=== PATIENT | male | born 1965 | race Caucasian/White ===

== ENCOUNTER 2024-10-26 15:25 | Outpatient (AMB) | payer OTHER, SELFPAY ==
--- NOTE | 2024-10-26 15:30 | MHC.OFFWIV ---
Intake Vital Signs 10/26/24 15:53 Height 5 ft 8 in Weight 262 lb BMI 39.8 BP 124/82 Blood Pressure Location Rt brachial Position Sitting Pulse 98 Pulse Source Pulse Oximeter Temp 97.8 F Temp Source Oral Pulse Oximetry (%) 97 Oxygen Delivery Method Room Air Intake Visit Reasons: [employer]-b/l arm hand & chest rash Intake Note: Pt presents to the office today for c/o bilateral arm,hand, and chest rash x1 week. Pt states he did get a shingles vaccine 3 days ago. Patient Tobacco Use Status: Never used Tobacco Allergies No Known Allergies Allergy (Verified 10/26/24 15:58) HPI HPI Comments History of Present Illness Details This is a 59-year-old male with past medical history of hyperlipidemia and hypertension presenting for evaluation of a rash that he has had on his arms and chest wall for the past 1 week. Patient states that he 1st noticed red bumps on his right forearm approximately 1 week ago that were very itchy and then the rash has spread thereafter to his chest and left arm. Patient states that he did have his vaccination for herpes zoster approximately 3 days ago. Patient has been using antibiotic ointment topically without relief of his symptoms. Patient denies having any fevers, chills, cough, shortness for breath, difficulty swallowing or swelling of his tongue. Patient states that he believes his may be related to a new laundry detergent. He denies using any new soaps, eating new foods, taking new medications, new pets or other exposures. PFSH Social History Patient Tobacco Use Status: Never used Tobacco Review of Systems Const All systems reviewed & are unremarkable except as noted in HPI and below Reports no additional complaints Eyes Reports no additional complaints ENT Reports no additional complaints Card Reports no additional complaints Resp Reports no additional complaints GI Reports no additional complaints Reports no additional complaints Musc Reports no additional complaints Skin/Breast Reports change in pigmentation, Reports changing lesions, Reports pruritus, Reports lesions, Reports new lesions, Reports erythema and Denies skin swelling Neuro Reports no additional complaints Psych Reports no additional complaints Endo Reports no additional complaints Kuldip/Lymph Reports no additional complaints Physical Exam Vital Signs: Last Vital Signs Temp 97.8 F 10/26/24 15:53 Pulse 98 10/26/24 15:53 BP 124/82 10/26/24 15:53 Pulse Ox 97 10/26/24 15:53 Oxygen Delivery Method Room Air 10/26/24 15:53 BMI result Body Mass Index 39.8 Const General: cooperative, healthy appearing, comfortable and no acute distress; No ill appearing or lethargic Nutritional Appearance: average body habitus Orientation/consciousness: patient oriented x3 and No lethargic Limitations: no limitations Resp Effort & Inspection: normal respiratory effort, able to speak in complete sentences, no audible wheezes, no cough and no respiratory distress Auscultation: clear to auscultation bilaterally Cardio Rate: regular rate Rhythm: regular rhythm Skin Other: There is a maculopapular eruption noted on the volar surfaces of the forearms bilaterally in the dorsal surface of the arms bilaterally as well as the anterior chest wall. There are minimal erythematous papules on the posterior trunk. There are erythematous plaques on the dorsal surfaces of the hands bilaterally, left more extensive than left with manual excoriations. At this time there is no evidence of a secondary cellulitis, tenderness or warmth to touch. Neuro General: patient oriented x3 Psych Appearance: grossly normal Mental Status: mental status grossly normal Insight: Good insight present (Psych) Judgement: Good judgement present (Psych) Assessment & Plan Assessment & Plan (1) Contact dermatitis: Comment: Patient's history and examination are consistent with a contact dermatitis and will be treated with a prednisone taper over 9 days. Code(s): L25.9 - Unspecified contact dermatitis, unspecified cause Qualifiers: Contact dermatitis type: unspecified Contact dermatitis trigger: unspecified trigger Qualified Code(s): L25.9 - Unspecified contact dermatitis, unspecified cause Plan: Prednisone 60 mg x 3 days, 40 mg x 3 days, 20 mg x 3 days. Medications: New prednisone 20 mg orally 60mg x 3 days, 40mg x 3 days, 20mg x 3 days; 18 tabs 0RF Coding Level of Care Code Est Pt Level 3 (43127) Diagnoses Contact dermatitis, unspecified contact dermatitis type, unspecified trigger L25.9 Contact dermatitis type: unspecified Contact dermatitis trigger: unspecified trigger Time Spent (min) 20
[2024-10-26 15:53] VITALS: BP 124/82; PULSE 98; TEMP 36.6; O2SAT 97; BMI 39.8
--- OUTSIDE RECORDS SUMMARY | 2024-10-26 17:22 | XMS_ITS | Data Portability ---
Author Organization [facility], Main Office Address [address] [facility] [address] [place] [address] Care Team Providers Care Metal Pickling Equipment Operator Name Role Phone JUSTIN AMNA Vascular Surgeon JUANJOSE INGRAM Primary Care Provider [phone] GERARD MALDONADO Rail Manager [phone] Assessment Encounter Date Assessment Date Assessment LastModified by Organization Details LastModified Time 08/05/2023 08/05/2023 This service was provided using telemedicine. Patient consented to telephone visit Patient was located in the [facility]. Provider was located in the office. No other persons participated in the telemedicine visit except for the patient unless otherwise indicated here. {{}} Total time of visit was 15 minutes. [email or web address] Not available 08/05/2023 16:16:35 Plan of Treatment Reminders Order Date Submit Date Provider Last Modified By Organization Details Last Modified Time Details Appointments PE EST 2024 04:00P M Juanjose Ingram PA-Angy Not available Not available Not available Lab lipid panel, serum 2020 021 [email or web address] [facility], [address] [facility] [place], [address], 08/02/2021 12:50:38 CBC w/ auto diff 2021 022 [email or web address] [facility], [address], [place], [address], 10/02/2022 10:48:17 BMP, serum or plasma 2021 022 [email or web address] [facility], [address], [facility] [place], [address], 10/02/2022 10:48:17 hepatitis C virus Ab, serum 2021 022 SALINAS [facility], [address], [address], [place], [address], 10/31/2021 16:49:04 HbA1c (hemoglob in A1c), blood 2022 023 SALINAS [facility], [address], [address], [place], [address], 09/08/2023 21:48:45 CBC w/ auto diff 2022 023 SALINAS [facility], [address], [address], [place], [place], [address], 09/08/2023 21:30:12 PSA, serum or plasma - Screening 2022 023 SALINAS [facility], [address], [address], [place], [address], 09/08/2023 21:36:48 hepatitis C virus Ab, serum 2022 023 SALINAS [facility], [address], [address], [place], [address], 09/10/2023 07:07:45 lipid panel, serum 2022 023 SALINAS [facility], [address], [address], [place], [address], 09/08/2023 21:26:20 CMP, serum or plasma 2022 023 SALINAS [facility], [address], [address], [place], [address], 09/08/2023 21:26:18 BMP, serum or plasma 2023 024 SALINAS [facility], [address], [address], [place], [address], 01/05/2024 03:13:35 HbA1c (hemoglob in A1c), blood 2023 024 SALINAS [facility], [address], [address], [place], [address], 01/05/2024 03:13:35 noninvasi ve colorecta l cancer DNA + occult blood screening , QL, stool 2023 024 [facility] (Cologuard Orders Only), [address], [address], [place], [address], 12/10/2023 13:25:51 lipid panel, serum 2023 SALINAS [facility], [address], [address], [place], [address], 01/05/2024 03:13:35 CK (creatine kinase), total, serum 2023 024 SALINAS [facility], [address], [address], [place], [address], 01/05/2024 03:13:36 Referral orthopedi c referral 2018 019 [email or web address] Not available 06/18/2019 09:21:00 nutrition ist/dieti autumn referral 2020 021 abigby Not available 01/01/2021 13:25:38 nutrition ist/dieti autumn referral 2021 022 [email or web address] Not available 10/31/2021 17:33:23 nutrition ist/dieti autumn referral 2023 024 [email or web address] Not available 11/14/2023 11:52:01 Procedures None recorded. Surgeries None recorded. Imaging None recorded. Medication Orders sildenafi l 50 mg tablet 2020 021 [facility]/Pharmacy #[id number], [address] [place], [address], 01/01/2021 13:08:42 lisinopri l 10 mg tablet 2022 023 [id number], [address] [place], [address], 08/05/2023 16:21:31 atorvasta tin 10 mg tablet [id number] [address] [place], [address], 11/13/2023 17:20:22 atorvasta tin 20 mg tablet 2023 024 [facility]/Pharmacy #[id number], [address] [place], [address], 11/13/2023 16:58:34 Patient Targets Encounter Date Encounter Id Patient Goals Patient Target Last Modified By Organization Details Last Modified Time 01/01/2021 [id number] intermediate goal of Blood Pressure 140 / 90 Not available Not available Not available exterminator termite goal of Exercise level Not available Not available Not available exterminator termite goal of Tobacco Smoking Status Not available Not available Not available exterminator termite goal of Excess Body Weight Loss % 5 Not available Not available Not available Pt advised and agrees to eat a low salt low fat diet; to do moderate exercise (such as walking) 150 minutes per week; to limit alcohol intake (goal of 2 drinks per day or less for men or 1 for woman). and to monitor dietary sodium. Will monitor home blood pressures and bring readings to appointments. Patient preferences and goals incorporated in plan and updated/modified as needed to reflect progress toward goal.Pt advised and agrees to work on self-monitoring behaviors; begin an appropriate diet for weight loss (such as a low carbohydrate diet), to do moderate exercise (such as walking) for approximately 150 minutes per week; and to identify desirable and timely rewards that will reinforce achievement of specific weight loss goals. pmadden Not available 01/01/2021 13:10:48 10/31/2021 [id number] intermediate goal of Blood Pressure 140 / 90 Not available Not available Not available intermediate goal of Exercise level Not available Not available Not available intermediate goal of Tobacco Smoking Status Not available Not available Not available exterminator termite goal of Excess Body Weight Loss % 5 Not available Not available Not available Pt advised and agrees to work on self-monitoring behaviors; begin an appropriate diet for weight loss (such as a low carbohydrate diet), to do moderate exercise (such as walking) for approximately 150 minutes per week; and to identify desirable and timely rewards that will reinforce achievement of specific weight loss goals.Pt advised and agrees to eat a low salt low fat diet; to do moderate exercise (such as walking) 150 minutes per week; to limit alcohol intake (goal of 2 drinks per day or less for men or 1 for woman). and to monitor dietary sodium. Will monitor home blood pressures and bring readings to appointments. Patient preferences and goals incorporated in plan and updated/modified as needed to reflect progress toward goal. pmadden Not available 10/31/2021 16:48:37 08/05/2023 [id number] exterminator termite goal of Blood Pressure 140 / 90 Not available Not available Not available intermediate goal of Exercise level Not available Not available Not available intermediate goal of Tobacco Smoking Status Not available Not available Not available Ongoing of LDL Direct <100 Not available Not available Not available Ongoing of LDL Direct yearly Not available Not available Not available Pt advised and agrees to eat a low salt low fat diet; to do moderate exercise (such as walking) 150 minutes per week; to limit alcohol intake (goal of 2 drinks per day or less for men or 1 for woman). and to monitor dietary sodium. Will monitor home blood pressures and bring readings to appointments. Patient preferences and goals incorporated in plan and updated/modified as needed to reflect progress toward goal.Pt agrees to follow low fat diet, avoid saturated fats , decrease carbohydrate intake to 45 - 50 gm per meal , pt agrees to develop a regular pattern of exercise such as walking 30 minutes a day 3 times a week, Pt will keep a record of exercise and activity level Patient preferences and goals incorporated in plan and updated/modified as needed to reflect progress toward goal. pmadden Not available 08/05/2023 16:22:10 11/13/2023 [id number] intermediate goal of Blood Pressure 140 / 90 Not available Not available Not available intermediate goal of Exercise level Not available Not available Not available intermediate goal of Tobacco Smoking Status Not available Not available Not available intermediate goal of Excess Body Weight Loss % 5 Not available Not available Not available Ongoing of LDL Direct <100 Not available Not available Not available Ongoing of LDL Direct yearly Not available Not available Not available Pt advised and agrees to work on self-monitoring behaviors; begin an appropriate diet for weight loss (such as a low carbohydrate diet), to do moderate exercise (such as walking) for approximately 150 minutes per week; and to identify desirable and timely rewards that will reinforce achievement of specific weight loss goals.Pt advised and agrees to eat a low salt low fat diet; to do moderate exercise (such as walking) 150 minutes per week; to limit alcohol intake (goal of 2 drinks per day or less for men or 1 for woman). and to monitor dietary sodium. Will monitor home blood pressures and bring readings to appointments. Patient preferences and goals incorporated in plan and updated/modified as needed to reflect progress toward goal.Pt agrees to follow low fat diet, avoid saturated fats , decrease carbohydrate intake to 45 - 50 gm per meal , pt agrees to develop a regular pattern of exercise such as walking 30 minutes a day 3 times a week, Pt will keep a record of exercise and activity level Patient preferences and goals incorporated in plan and updated/modified as needed to reflect progress toward goal. pmadden Not available 11/13/2023 16:58:22 Patient Instructions Encounter Date Encounter Id Patient Instructions Last Modified By Organization Details Last Modified Time 06/14/2019 [id number] patellofemoral pain syndrome: care instructions pmadden Not available 06/14/2019 11:40:56 kneecap bursitis : care instructions pmadden Not available 06/14/2019 11:40:56 knee pain or injury: care instructions pmadden Not available 06/14/2019 11:40:56 knee: exercises pmadden Not available 06/14/2019 11:40:56 patellofemoral pain syndrome (runner's knee): exercises pmadden Not available 06/14/2019 11:40:56 knee (prepatella r) bursitis: exercises pmadden Not available 06/14/2019 11:40:56 Medications (OTC , herbal therapies, supplements) reviewed and reconciled with patient and or caregiver, including potential side effects, drug interactions, instructions, and the consequences of not taking medication. Reviewed potential barriers to medication adherence, such as side effects from medication or cost of medication. Patient will follow up and keep appointment as scheduled. pmadden Not available 06/14/2019 11:41:10 01/01/2021 [id number] starting a weigh t loss plan: care instructions pmadden Not available 01/01/2021 13:11:23 Nutrition Referr al and Weight Management Follow-up Information pmadden Not available 01/01/2021 13:11:23 Medications (OTC , herbal therapies, supplements) reviewed and reconciled with patient and or caregiver, including potential side effects, drug interactions, instructions, and the consequences of not taking medication. Reviewed potential barriers to medication adherence, such as side effects from medication or cost of medication. pmadden Not available 01/01/2021 13:13:07 10/31/2021 [id number] A healthy lifestyle: care instructions pmadden Not available 10/31/2021 16:48:49 Well Visit 50 to 65: Care Instructions pmadden Not available 10/31/2021 16:48:49 starting a weigh t loss plan: care instructions pmadden Not available 10/31/2021 16:48:49 Nutrition Referr al and Weight Management Follow-up Information pmadden Not available 10/31/2021 16:48:49 Medications (OTC , herbal therapies, supplements) reviewed and reconciled with patient and or caregiver, including potential side effects, drug interactions, instructions, and the consequences of not taking medication. Reviewed potential barriers to medication adherence, such as side effects from medication or cost of medication. pmadden Not available 10/31/2021 16:48:46 08/05/2023 [id number] Prostate Cancer Screening pmadden Not available 08/05/2023 16:21:28 Medications (OTC , herbal therapies, supplements) reviewed and reconciled with patient and or caregiver, including potential side effects, drug interactions, instructions, and the consequences of not taking medication. Reviewed potential barriers to medication adherence, such as side effects from medication or cost of medication. pmadden Not available 08/05/2023 16:22:40 11/13/2023 [id number] colon cancer screening: care instructions pmadden Not available 11/13/2023 17:02:49 A healthy lifestyle: care instructions pmadden Not available 11/13/2023 16:58:32 Well Visit 50 to 65: Care Instructions pmadden Not available 11/13/2023 16:58:32 starting a weigh t loss plan: care instructions pmadden Not available 11/13/2023 16:58:32 Nutrition Referr al and Weight Management Follow-up Information pmadden Not available 11/13/2023 16:58:32 Medications (OTC , herbal therapies, supplements) reviewed and reconciled with patient and or caregiver, including potential side effects, drug interactions, instructions, and the consequences of not taking medication. Reviewed potential barriers to medication adherence, such as side effects from medication or cost of medication. 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 Refer ral for Body mass index 30+ - obesity Referring Physician: Juanjose Ingram, Internal Medicine, Encounter Date: 11/13/2023 Results Created Date Observation Date Name Description Value Unit Range Abnormal Flag Note LastModifiedBy Organization Detail LastModifiedTime 09/17/20 21 09/17/2021 COMPL ETE BLOOD COUNT WBC 13.1 K/mm3 (4.0-1 1.0) high Not Available [facility] [place], [address], 09/17/2021 20:32:34 09/17/20 21 09/17/2021 COMPL ETE BLOOD COUNT RBC 4.54 M/mm3 (4.70- 6.10) low Not Available [facility] [place], [address], 09/17/2021 20:32:34 09/17/20 21 09/17/2021 COMPL ETE BLOOD COUNT HGB 14.0 gm/dL (13.7- 17.1) Not Available [facility] [address] [place], [address], 09/17/2021 20:32:34 09/17/20 21 09/17/2021 COMPL ETE BLOOD COUNT HCT 40.6 % (40.5- 50.0) Not Available [facility] [address] [place], [address], 09/17/2021 20:32:34 09/17/20 21 09/17/2021 COMPL ETE BLOOD COUNT MCV 89.4 fL (80.0- 94.0) Not Available [facility] [address] [place], [address], 09/17/2021 20:32:34 09/17/20 21 09/17/2021 COMPL ETE BLOOD COUNT MCH 30.8 pg (27.0- 34.0) Not Available [facility] [address] [place], [address], 09/17/2021 20:32:34 09/17/20 21 09/17/2021 COMPL ETE BLOOD COUNT MCHC 34.5 g/dL (33.0- 37.0) Not Available [facility] [address] [place], [address], 09/17/2021 20:32:34 09/17/20 21 09/17/2021 COMPL ETE BLOOD COUNT plt 269 K/mm3 (150-4 60) Not Available [facility] [address] [place], [address], 09/17/2021 20:32:34 09/17/20 21 09/17/2021 COMPL ETE BLOOD COUNT RDW-SD 43.8 fL (<47.0 ) Not Available [facility] [address] [place], [address], 09/17/2021 20:32:34 09/17/20 21 09/17/2021 COMPL ETE BLOOD COUNT MPV 11.1 fL (9.4-1 2.4) Not Available [facility] [address] [place], [address], 09/17/2021 20:32:34 09/17/20 21 09/17/2021 COMPL ETE BLOOD COUNT automated NRBC 0.0 #/100 _WBC' s Not Available [facility] [address] [place], [address], 09/17/2021 20:32:34 09/17/20 21 09/17/2021 COMPL ETE BLOOD COUNT abs. NRBC 0.0 K/mm3 Not Available [facility] [address] [place], [address], 09/17/2021 20:32:34 09/17/20 21 09/17/2021 HEMOG LOBIN A1C hemoglobin A1C 5.5 % (4.0-5 .6) MONIT ORING : In known diabe tic patie nts, hemog lobin A1c targe ts shoul d be discu ssed with healt h care provi rupinder. DIAGN OSTIC USE: The Ameri can Diabe nuha Assoc iatio n (ADA) and the World Healt h Organ izati on (WHO) recom mend the use of HbA1c to diagn ose diabe nuha using a thres hold of 6.5%. Patie nts who have an HbA1c betwe en 5.7% and 6.4% are consi dered at incre ased risk for devel oping diabe nuha in the futur e. CAUTI ON: False ly low HbA1c resul ts may be obser marshall in patie nts with hemol ytic anemi a, homoz ygous forms of abnor mal hemog lobin (e.g. SS, CC, SC), pregn harley, recen t blood loss or hemog lobin F great er than 7%. Fruct osami ne may be used as an alter lamin test in these cases . REFER ENCE: ADA: Stand ards of Medic al Care in Diabe nu[place] 2019, The Journ al of Clini long and Appli ed [facility] and Educa tion Volum e 43, Suppl ement 1 Not Available [facility] [address] [place], [address], 09/17/2021 20:37:51 09/17/20 21 09/17/2021 COMPR EHENS URSULA METAB OLIC PANL glucose 81 mg/dL (70-99 ) Not Available [facility] [address] [place], [address], 09/17/2021 22:05:35 09/17/20 21 09/17/2021 COMPR EHENS URSULA METAB OLIC PANL BUN 16 mg/dL (6-20) Not Available [facility] [address] [place], [address], 09/17/2021 22:05:35 09/17/20 21 09/17/2021 COMPR EHENS URSULA METAB OLIC PANL creatinine 0.8 mg/dL (0.7-1 .2) Not Available [facility] [address] [place], [address], 09/17/2021 22:05:35 09/17/20 21 09/17/2021 COMPR EHENS URSULA METAB OLIC PANL sodium 137 mmol/ L (133-1 45) Not Available [facility] [address] [place], [address], 09/17/2021 22:05:35 09/17/20 21 09/17/2021 COMPR EHENS URSULA METAB OLIC PANL potassium 4.3 mmol/ L (3.6-5 .2) Not Available [facility] [address] [place], [address], 09/17/2021 22:05:35 09/17/20 21 09/17/2021 COMPR EHENS URSULA METAB OLIC PANL chloride 99 mmol/ L (98-10 7) Not Available [facility] [address] [place], [address], 09/17/2021 22:05:35 09/17/20 21 09/17/2021 COMPR EHENS URSULA METAB OLIC PANL bicarbonate 23 mmol/ L (22-29 ) Not Available [facility] [address] [place], [address], 09/17/2021 22:05:35 09/17/20 21 09/17/2021 COMPR EHENS URSULA METAB OLIC PANL anion gap 15 (4-17) Not Available [facility] [address] [place], [address], 09/17/2021 22:05:35 09/17/20 21 09/17/2021 COMPR EHENS URSULA METAB OLIC PANL albumin 4.9 gm/dL (3.4-4 .8) high Not Available [facility] [address] [place], [address], 09/17/2021 22:05:35 09/17/20 21 09/17/2021 COMPR EHENS URSULA METAB OLIC PANL calcium 9.7 mg/dL (8.6-1 0.5) Not Available [facility] [address] [place], [address], 09/17/2021 22:05:35 09/17/20 21 09/17/2021 COMPR EHENS URSULA METAB OLIC PANL bilirubin,to aliza 0.5 mg/dL (0-1.2 ) Not Available [facility] [address] [place], [address], 09/17/2021 22:05:35 09/17/20 21 09/17/2021 COMPR EHENS URSULA METAB OLIC PANL total protein 8.2 gm/dL (6.2-8 .2) Not Available [facility] [address] [place], [address], 09/17/2021 22:05:35 09/17/20 21 09/17/2021 COMPR EHENS URSULA METAB OLIC PANL Ag ratio 1.5 Not Available [facility] [address] [place], [address], 09/17/2021 22:05:35 09/17/20 21 09/17/2021 COMPR EHENS URSULA METAB OLIC PANL AST 23 U/L (0-40) Not Available [facility] [address] [place], [address], 09/17/2021 22:05:35 09/17/20 21 09/17/2021 COMPR EHENS URSULA METAB OLIC PANL alk phos 57 U/L (40-12 9) Not Available [facility] [address] [place], [address], 09/17/2021 22:05:35 09/17/20 21 09/17/2021 COMPR EHENS URSULA METAB OLIC PANL ALT 27 U/L (0-41) Not Available [facility] [address] [place], [address], 09/17/2021 22:05:35 09/17/20 21 09/17/2021 COMPR EHENS URSULA METAB OLIC PANL estimated GFR creatinine 100 mL/mi n/1.7 3_M2 Effec tive 2020, race modif iers will no longe r be inclu ded in our creat inine -base d CKD-E PI eGFR calcu latio ns. Accor dingl y, eGFR lab repor t descr iptor s (i.e. , EST GFR NON AFRIC AN AMERI CAN, EST GFR AFRIC AN AMERI CAN) will be disco ntinu ed. Pleas e take this into accou nt when utili zing creat inine -base d formu latio ns to diagn ose and manag e chron ic kidne y disea se. Creat inine based estim ated glome rular filtr ation rate (eGFR ) is calcu lated using the Chron ic Kidne y Disea se Epide miolo gy Colla borat ion (CKD- EPI). The CKD-E PI calcu latio n is not valid ated in child paula (<18 years ), pregn ant woman or in racia l or ethni c subgr oups. Not Available [facility] [address] [place], [address], 09/17/2021 22:05:35 09/17/20 21 09/17/2021 LIPID PANEL cholesterol, total 159 mg/dL (<200) Not Available [facility] [address] [place], [address], 09/17/2021 22:05:36 09/17/20 21 09/17/2021 LIPID PANEL triglyceride 101 mg/dL (<150) Not Available [facility] [address] [place], [address], 09/17/2021 22:05:36 09/17/20 21 09/17/2021 LIPID PANEL HDL chol 54 mg/dL (>39) Not Available [facility] [address] [place], [address], 09/17/2021 22:05:36 09/17/20 21 09/17/2021 LIPID PANEL LDL cholesterol, calculated 85 mg/dL (0-130 ) Not Available [facility] [address] [place], [address], 09/17/2021 22:05:36 09/17/20 21 09/17/2021 LIPID PANEL non HDL cholesterol (calc) 105 mg/dL (<160) Not Available [facility] [address] [place], [address], 09/17/2021 22:05:36 09/17/20 21 09/17/2021 TSH WITH REFLE X TO FT4 TSH 2.33 uIU/m L (0.4-4 .2) Not Available [facility] [address] [place], [address], 09/17/2021 22:28:56 09/08/20 23 09/08/2023 COMPR EHENS URSULA METAB OLIC PANL glucose 87 mg/dL (70-99 ) Not Available [facility] [address] [place], [address], 09/08/2023 21:26:18 09/08/20 23 09/08/2023 COMPR EHENS URSULA METAB OLIC PANL BUN 20 mg/dL (6-20) Not Available [facility] [address] [place], [address], 09/08/2023 21:26:18 09/08/20 23 09/08/2023 COMPR EHENS URSULA METAB OLIC PANL creatinine 0.8 mg/dL (0.7-1 .2) Not Available [facility] [address] [place], [address], 09/08/2023 21:26:18 09/08/20 23 09/08/2023 COMPR EHENS URSULA METAB OLIC PANL sodium 138 mmol/ L (133-1 45) Not Available [facility] [address] [place], [address], 09/08/2023 21:26:18 09/08/20 23 09/08/2023 COMPR EHENS URSULA METAB OLIC PANL potassium 4.2 mmol/ L (3.6-5 .2) Not Available [facility] [address] [place], [address], 09/08/2023 21:26:18 09/08/20 23 09/08/2023 COMPR EHENS URSULA METAB OLIC PANL chloride 99 mmol/ L (98-10 7) Not Available [facility] [address] [place], [address], 09/08/2023 21:26:18 09/08/20 23 09/08/2023 COMPR EHENS URSULA METAB OLIC PANL bicarbonate 25 mmol/ L (22-29 ) Not Available [facility] [address] [place], [address], 09/08/2023 21:26:18 09/08/20 23 09/08/2023 COMPR EHENS URUSLA METAB OLIC PANL anion gap 14 (4-17) Not Available [facility] [address] [place], [address], 09/08/2023 21:26:18 09/08/20 23 09/08/2023 COMPR EHENS URSULA METAB OLIC PANL albumin 4.9 gm/dL (3.4-4 .8) high Not Available [facility] [address] [place], [address], 09/08/2023 21:26:18 09/08/20 23 09/08/2023 COMPR EHENS URSULA METAB OLIC PANL calcium 10.0 mg/dL (8.6-1 0.5) Not Available [facility] [address] [place], [address], 09/08/2023 21:26:18 09/08/20 23 09/08/2023 COMPR EHENS URSULA METAB OLIC PANL bilirubin,to alzia 0.3 mg/dL (0-1.2 ) Not Available [facility] [address] [place], [address], 09/08/2023 21:26:18 09/08/20 23 09/08/2023 COMPR EHENS URSULA METAB OLIC PANL total protein 8.0 gm/dL (6.2-8 .2) Not Available [facility] [address] [place], [address], 09/08/2023 21:26:18 09/08/20 23 09/08/2023 COMPR EHENS URSULA METAB OLIC PANL Ag ratio 1.6 Not Available [facility] [address] [place], [address], 09/08/2023 21:26:18 09/08/20 23 09/08/2023 COMPR EHENS URSULA METAB OLIC PANL AST 21 U/L (0-40) Not Available [facility] [address] [place], [address], 09/08/2023 21:26:18 09/08/20 23 09/08/2023 COMPR EHENS URSULA METAB OLIC PANL alk phos 64 U/L (40-12 9) Not Available [facility] [address] [place], [address], 09/08/2023 21:26:18 09/08/20 23 09/08/2023 COMPR EHENS URSULA METAB OLIC PANL ALT 28 U/L (0-41) Not Available [facility] [address] [place], [address], 09/08/2023 21:26:18 09/08/20 23 09/08/2023 COMPR EHENS URSULA METAB OLIC PANL estimated GFR creatinine 102 mL/mi n/1.7 3_M2 Creat inine based estim ated glome rular filtr ation (eGFR ) in adult s is calcu lated using the Natio nal Kidne y Found ation recom susannah d 2020 CKD-E PI equat ion. Estim ates GFR from serum creat inine , age and sex. Not Available [facility] [address] [place], [address], 09/08/2023 21:26:18 09/08/20 23 09/08/2023 LIPID PANEL cholesterol, total 193 mg/dL (<200) Not Available [facility] [address] [place], [address], 09/08/2023 21:26:20 09/08/20 23 09/08/2023 LIPID PANEL triglyceride 334 mg/dL (<150) high Not Available [facility] [address] [place], [address], 09/08/2023 21:26:20 09/08/20 23 09/08/2023 LIPID PANEL HDL chol 36 mg/dL (>39) low Not Available [facility] [address] [place], [address], 09/08/2023 21:26:20 09/08/20 23 09/08/2023 LIPID PANEL LDL cholesterol, calculated 90 mg/dL (0-130 ) Not Available [facility] [address] [place], [address], 09/08/2023 21:26:20 09/08/20 23 09/08/2023 LIPID PANEL non HDL cholesterol (calc) 157 mg/dL (<160) Not Available [facility] [address] [place], [address], 09/08/2023 21:26:20 09/08/20 23 09/08/2023 COMPL ETE CBC WITH DIFF WBC 12.8 K/mm3 (4.0-1 1.0) high Not Available [facility] [address] [place], [address], 09/08/2023 21:30:12 09/08/20 23 09/08/2023 COMPL ETE CBC WITH DIFF RBC 4.51 M/mm3 (4.70- 6.10) low Not Available [facility] [address] [place], [address], 09/08/2023 21:30:12 09/08/20 23 09/08/2023 COMPL ETE CBC WITH DIFF HGB 13.5 gm/dL (13.7- 17.1) low Not Available [facility] [address] [place], [address], 09/08/2023 21:30:12 09/08/20 23 09/08/2023 COMPL ETE CBC WITH DIFF HCT 40.9 % (40.5- 50.0) Not Available [facility] [address] [place], [address], 09/08/2023 21:30:12 09/08/20 23 09/08/2023 COMPL ETE CBC WITH DIFF MCV 90.7 fL (80.0- 94.0) Not Available [facility] [address] [place], [address], 09/08/2023 21:30:12 09/08/20 23 09/08/2023 COMPL ETE CBC WITH DIFF MCH 29.9 pg (27.0- 34.0) Not Available [facility] [address] [place], [address], 09/08/2023 21:30:12 09/08/20 23 09/08/2023 COMPL ETE CBC WITH DIFF MCHC 33.0 g/dL (33.0- 37.0) Not Available [facility] [address] [place], [address], 09/08/2023 21:30:12 09/08/20 23 09/08/2023 COMPL ETE CBC WITH DIFF plt 282 K/mm3 (150-4 60) Not Available [facility] [address] [place], [address], 09/08/2023 21:30:12 09/08/20 23 09/08/2023 COMPL ETE CBC WITH DIFF RDW-SD 45.1 fL (<47.0 ) Not Available [facility] [address] [place], [address], 09/08/2023 21:30:12 09/08/20 23 09/08/2023 COMPL ETE CBC WITH DIFF MPV 11.4 fL (9.4-1 2.4) Not Available [facility] [address] [place], [address], 09/08/2023 21:30:12 09/08/20 23 09/08/2023 COMPL ETE CBC WITH DIFF automated NRBC 0.0 #/100 _WBC' s Not Available [facility] [address] [place], [address], 09/08/2023 21:30:12 09/08/20 23 09/08/2023 COMPL ETE CBC WITH DIFF abs. NRBC 0.0 K/mm3 Not Available [facility] [address] [place], [address], 09/08/2023 21:30:12 09/08/20 23 09/08/2023 COMPL ETE CBC WITH DIFF neut # 8.8 K/mm3 (1.3-7 .0) high Not Available [facility] [address] [place], [address], 09/08/2023 21:30:12 09/08/20 23 09/08/2023 COMPL ETE CBC WITH DIFF lymph # 2.5 K/mm3 (0.8-3 .1) Not Available [facility] [address] [place], [address], 09/08/2023 21:30:12 09/08/20 23 09/08/2023 COMPL ETE CBC WITH DIFF mono# 1.2 K/mm3 (0.4-1 .3) Not Available [facility] [address] [place], [address], 09/08/2023 21:30:12 09/08/20 23 09/08/2023 COMPL ETE CBC WITH DIFF eo # 0.1 K/mm3 (0.0-0 .4) Not Available [facility] [address] [place], [address], 09/08/2023 21:30:12 09/08/20 23 09/08/2023 COMPL ETE CBC WITH DIFF baso # 0.1 K/mm3 (0.0-0 .1) Not Available [facility] [address] [place], [address], 09/08/2023 21:30:12 09/08/20 23 09/08/2023 COMPL ETE CBC WITH DIFF abs. imm gran 0.1 K/mm3 Not Available [facility] [address] [place], [address], 09/08/2023 21:30:12 09/08/20 23 09/08/2023 COMPL ETE CBC WITH DIFF neut 68.8 % (44-76 ) Not Available [facility] [address] [place], [address], 09/08/2023 21:30:12 09/08/20 23 09/08/2023 COMPL ETE CBC WITH DIFF lymph 19.8 % (15-43 ) Not Available [facility] [address] [place], [address], 09/08/2023 21:30:12 09/08/20 23 09/08/2023 COMPL ETE CBC WITH DIFF monocyte 9.5 % (4.5-1 0.5) Not Available [facility] [address] [place], [address], 09/08/2023 21:30:12 09/08/20 23 09/08/2023 COMPL ETE CBC WITH DIFF eo 1.1 % (0-6) Not Available [facility] [address] [place], [address], 09/08/2023 21:30:12 09/08/20 23 09/08/2023 COMPL ETE CBC WITH DIFF baso 0.4 % (0-2) Not Available [facility] [address] [place], [address], 09/08/2023 21:30:12 09/08/20 23 09/08/2023 COMPL ETE CBC WITH DIFF imm gran 0.4 % Not Available [facility] [address] [place], [address], 09/08/2023 21:30:12 09/08/20 23 09/08/2023 PSA SCREE N PSA 1.0 NG/mL (0-4) TEST PERFO RMED USING THE MILE ELECT MILE MILLU MINES CENCE TOTAL PSA ASSAY . PSA VALUE S OBTAI RYAN WITH OTHER ASSAY METHO DS OR KITS CANNO T BE USED INTER COLLADO EABLY . Not Available [facility] [address] [place], [address], 09/08/2023 21:36:48 09/08/20 23 09/08/2023 HEMOG LOBIN A1C hemoglobin A1C 5.7 % (4.0-5 .6) high MONIT ORING : In known diabe tic patie nts, hemog lobin A1c targe ts tayler d be discu ssed with healt h care provi rupinder. DIAGN OSTIC USE: The Ameri can Diabe nuha Assoc iatio n (ADA) and the World Healt h Organ izati on (WHO) recom mend the use of HbA1c to diagn ose diabe nuha using a thres hold of 6.5%. Patie nts who have an HbA1c betwe en 5.7% and 6.4% are consi dered at incre ased risk for devel oping diabe nuha in the futur e. CAUTI ON: False ly low HbA1c resul ts may be obser marshall in patie nts with hemol ytic anemi a, homoz ygous forms of abnor mal hemog lobin (e.g. SS, CC, SC), pregn harley, recen t blood loss or hemog lobin F great er than 7%. Fruct osami ne may be used as an alter lamin test in these cases . REFER ENCE: ADA: Stand ards of Medic al Care in Diabe nuha 2019, The Journ al of Clini long and Appli ed Resea rch and Educa tion Volum e 43, Suppl ement 1 Not Available [facility] [address] [place], [address], 09/08/2023 21:48:45 09/08/20 23 09/10/2023 ANTI- HEPAT ITIS C anti-hepatit is C (neg) Non React ursula Refer ence range : Non React ursula (NOTE ) HCV antib annie alone does not diffe renti ate betwe en previ ously resol marshall infec tion and activ e infec tion. Equiv ocal and React ursula HCV antib annie resul ts shoul d be follo wed up with an HCV RNA test to suppo rt the diagn osis of activ e HCV infec tion. Test perfo rmed by [facility], [address], [place] [address] Not Available [facility] [address] [place], [address], 09/10/2023 07:07:45 11/10/19 24 11/10/2023 LIPID PANEL cholesterol, total 174 mg/dL (<200) Not Available [facility] [address] [place], [address], 11/10/2023 20:45:32 11/10/19 24 11/10/2023 LIPID PANEL triglyceride 165 mg/dL (<150) high Not Available [facility] [address] [place], [address], 11/10/2023 20:45:32 11/10/19 24 11/10/2023 LIPID PANEL HDL chol 40 mg/dL (>39) Not Available [facility] [address] [place], [address], 11/10/2023 20:45:32 11/10/19 24 11/10/2023 LIPID PANEL LDL cholesterol, calculated 101 mg/dL (0-130 ) Not Available [facility] [address] [place], [address], 11/10/2023 20:45:32 11/10/19 24 11/10/2023 LIPID PANEL non HDL cholesterol (calc) 134 mg/dL (<160) Not Available [facility] [address] [place], [address], 11/10/2023 20:45:32 12/03/19 24 12/03/2023 COLOG UARD cologuard result reportable Positi ve negati ve abnormal POSIT URSULA TEST RESUL T. A posit ursula Colog uard resul t shoul d be follo wed with a colon oscop y or visua l exami natio n of the colon . The liliana l value (refe rence range ) for this assay is negat ursula. TEST DESCR IPTIO N: [place] site algor ithmi c gregorio sis of stool DNA-b carlos monson with hemog lobin immun oassa y. Quant itati ve value s of indiv idual bioma rkers are not repor table and are not assoc iated with indiv idual bioma rker resul t refer ence range s. Colog uard is inten ded for color ectal cance r scree tiffanie of adult s of eithe r sex, 45 years or older , who are at [facility] for color ectal cance r (CRC) . Colog uard has been appro marshall for use by the U.S. FDA. The perfo rmanc e of Colog uard was estab lishe d in a cross secti onal study of [facility] adult s aged 50-84 . Colog uard perfo rmanc e in patie nts ages 45 to 49 years was estim ated by sub-g roup gregorio sis of near- age group s. Colon oscop ies perfo rmed for a posit ursula resul t may find as the most clini iva signi fican t lesio n: color ectal cance r [4.0% ], advan sho adeno ma (incl uding sessi le gutierrez woody polyp s great er than or equal to 1cm diame ter) [20%] or non- advan sho adeno ma [31%] ; or no color ectal neopl albino [45%] . These estim ates are deriv ed from a prosp ectiv e cross -sect ional scree tiffanie study of 0 indiv idual s at [facility] risk for color ectal cance r who were scree ryan with both Colog uard and colon oscop y. (Hakan Ledesma et al, N Engl J Med 2014; 370(1 4):12 86-12 97.) Colog uard may produ ce a false negat ursula or false posit ursula resul t (no color ectal cance r or preca ncero us polyp prese nt at colon oscop y follo w up). A negat ursula Colog uard test resul t does not guara ntee the absen ce of CRC or advan sho adeno ma (pre- cance r). The curre nt Colog uard scree tiffanie inter ben is every 3 years . (Amer ican Cance r Socie ty and U.S. Multi -Soci ety Task Force ). Colog uard perfo rmanc e data in a 0 patie nt pivot al study using colon oscop y as the refer ence metho d can be acces sed at the follo wing locat ion: www.e xactl abs.c om/re bria . Addit ional descr iptio n of the Colog uard test proce ss, warni ngs and preca ution s can be found at www.c madhu boothed.c om. Not Available [facility] (Cologuard Orders Only) [address], [place], [address], 12/10/2023 13:25:51 Result Notes None recorded. Problems Name Problem SNOMED Code Status Onset Date Resolution Date Notes Provider Name and Address Organization Details Recorded Time Depressi ve disorder 41106713 Completed 201211/13/2023 Juanjose Ingram PA-C [address] [facility] [address], [place], [address], [facility] 4 16:44:18 Hyperlip idemia 16987411 Active 2010 Chio stewart [facility] 7 11:54:14 Pain in limb 50475200 Completed 201002/08/2017 Chio stewart [facility] 7 11:54:22 Administ ration of bacteria l and viral vaccine Completed 200904/19/2014 RECORDED 0 2:11PM BY ELVI BASSETT MA, OFFICE VISIT Álvaro stewart [facility] 6 17:27:48 Osteoart hritis 402534164 Active 2012 Chio stewart [facility] 7 11:54:12 Knee pain Completed 201002/08/2017 RECORDED 1 8:50AM BY WALT SOLER, OFFICE VISIT Chio stewart [facility] 7 11:54:04 Adult health examinat ion Completed 201002/08/2017 RECORDED 1 8:50AM BY WALT SOLER, OFFICE VISIT Chio stewart [facility] 7 11:54:00 Psychoge alvarado headache 17371408 Active 2010 Chio stewart [facility] 7 11:54:17 Administ ration of bacteria l and viral vaccine Completed 200905/16/2014 RECORDED 0 2:11PM BY ELVI BASSETT MA, OFFICE VISIT Álvaro stewart, [facility] 6 17:27:49 Body mass index 30+ - obesity 071765835 Active Álvaro stewart, [facility] 6 17:27:49 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 906191772 Active Álvaro stewart, [facility] 6 17:27:48 Elevated blood-pr essure reading without diagnosi s of hyperten jose 895249560 Completed 02/25/2019 KATIA More, [facility] 9 09:18:57 [facility] hyperten jose 74893925 Active Álvaro stewart, [facility] 6 17:29:36 Sickle cell trait 02103859 Active 2017 KATIA More, [facility] 9 09:18:14 Primary erectile dysfunct ion 005287516 Active 2018 Juanjose Ingram PA-C [address] [facility] [address] [facility] [place], [place], [address], [facility] 9 19:41:18 Reduced libido 9800997 Active 2018 Juanjose Ingram PA-C [address] [facility] [place], [place], [address], [facility] 9 19:41:23 Obstruct ursula sleep apnea syndrome 67137238 Active 2021 Juanjose Ingram PA-C [address] [facility] [place], [place], [address], [facility] 2 12:49:50 Impaired fasting glycemia 624745601 Completed 202111/13/2023 Juanjose Ingram PA-C [address] [address], [place], [address], [facility] 4 16:30:41 Leukocyt osis 180809121 Active 2021 Juanjose Ingram PA-C [address], [place], [address], [facility] 2 12:50:33 Prediabe nuha 412495109 Active 2023 Juanjose Ingram PA-C [address], [place], [address], [facility] 4 16:54:53 Problem Notes None recorded. Procedures Surgical History Date Name Laterality Status Provider Name and Address Organization Details Recorded Time 9 Cologuard completed Elvi espinoza MA [facility] 02/25/2019 09:22:01 8 Endovenous laser 1st vein completed Anisha Her [facility] 01/28/2018 15:13:07 Orthopedic Surgery completed Chio Cota MA [facility] 09/07/2015 15:11:14 Orthopedic Surgery completed Chio Cota MA [facility] 09/07/2015 15:11:14 Hernia Repair completed Elvi espinoza MA [facility] 02/25/2019 09:19:29 Imaging Results None recorded. Procedure Notes None recorded. Medical Equipment None Reported. Allergies No known drug allergies Medications Name Sig Start Date Stop Date Status Note LastModified by Organization Details LastModified Time atorvasta tin 20 mg tablet TAKE 1 TABLET BY MOUTH EVERYDAY AT BEDTIME active Not Available Not Available No t Available sildenafi l 50 mg tablet TAKE 1 TABLET BY MOUTH NEEDED FOR 90 DAYS. active Not Available Not Available No t Available atorvasta tin 10 mg tablet TAKE 1 TABLET EVERY DAY BY ORAL ROUTE AT BEDTIME FOR 90 DAYS, FOR LIPIDS. 11/13 completed Not Available Not Available Not Available ibuprofen 800 mg tablet Take 1 tablet 3 times a day by oral route with meals for 30 days. 02/08 completed Not Available Not Available Not Available acetamino phen 300 mg-codein e 30 mg tablet Take 1 tablet every 6 hours by oral route as directed for 5 days. 12/19 completed Not Available Not Available Not Available sulfameth oxazole 800 mg-trimet hoprim 160 mg tablet Take 1 tablet every 12 hours by oral route as directed for 7 days. 02/08 completed Not Available Not Available Not Available aspirin 81 mg tablet,de layed release Take 1 tablet every day by oral route. active Not Available Not Available No t Available lidocaine -prilocai ne 2.5 %-2.5 % topical cream 12/03 completed Not Available Not Available Not Available oxycodone -acetamin ophen 5 mg-325 mg tablet one tab every 6 hours prn pain 12/03 completed Not Available Not Available Not Available lisinopri l 10 mg tablet TAKE 1 TABLET BY MOUTH EVERY DAY IN THE EVENING FOR HIGH BLOOD PRESSURE . 2024 active Not Available Not Available Not Avai lable ibuprofen 600 mg tablet 12/22 completed Not Available Not Available Not Available amoxicill in 875 mg-potass ium clavulana te 125 mg tablet Take 1 tablet every 12 hours by oral route for 10 days. 06/14 completed Not Available Not Available Not Available oxycodone 5 mg tablet Take 1 tablet twice a day by oral route for 10 days. 12/03 completed Not Available Not Available Not Available Multivita min 50 Plus tablet Take 1 tablet every day by oral route. active Not Available Not Available No t Available Vicodin AT BEDTIME 06/29 completed RECORDED 12/28/19 11 8:50AM BY ELVI BECKER MA, MEDICATI ON AUTO-ERIC CTIVATIO N; Not Available Not Available Not Available lidocaine 5 % topical ointment 12/03 completed Not Available Not Available Not Available Vitals Date Recorded Body height Body mass index (BMI) Body weight Heart rate Oxygen saturation Oxygen saturation in Arterial blood by Pulse oximetry Body temperature Systolic blood pressure Diastolic blood pressure Provider Name and Address Organization Details Last Updated DateTime 9 173.99 cm 30.7 kg/m2 18856.4 4 g 75 /min 98 % 98 % 97.6 [degF] 124 mm[Hg] 73 mm[Hg] Dawn Lopez [facility] 09/09/201 9 10:56:08 Date Recorded Body height Body mass index (BMI) Body weight Body temperature Oxygen saturation Oxygen saturation in Arterial blood by Pulse oximetry Heart rate Systolic blood pressure Diastolic blood pressure Provider Name and Address Organization Details Last Updated DateTime 1 173.99 cm 36.3 kg/m2 900756. 35 g 98.42 [degF] 97 % 97 % 85 /min 133 mm[Hg] 76 mm[Hg] Charissa Gardner MA [facility] 1 11:46:02 Date Recorded Body height Body mass index (BMI) Body weight Heart rate Oxygen saturation Oxygen saturation in Arterial blood by Pulse oximetry Body temperature Systolic blood pressure Diastolic blood pressure Provider Name and Address Organization Details Last Updated DateTime 2 173.99 cm 34.9 kg/m2 263541. 02 g 88 /min 99 % 99 % 97.34 [degF] 128 mm[Hg] 79 mm[Hg] Elvi bassett MA [facility] 2 16:13:40 Date Recorded Body weight Body mass index (BMI) Body height Heart rate Oxygen saturation Oxygen saturation in Arterial blood by Pulse oximetry Body temperature Systolic blood pressure Diastolic blood pressure Provider Name and Address Organization Details Last Updated DateTime 4 229196. 39 g 39.6 kg/m2 173.99 cm 102 /min 97 % 97 % 98.3 [degF] 130 mm[Hg] 68 mm[Hg] Elvi bassett MA [facility] 4 16:13:20 Date Recorded Heart rate Provider Name an d Address Organization Details Last Updated DateTime 11/13/2023 84 /min Juanjose Giron [address] [address], [place], [address], [facility] 11/13/2023 17:19:36 Social History Question Answer Notes LastModified by Organizat ion Details LastModified Time Tobacco Smoking Status Never Smoker Elvi Gillespie MA null, [facility] 10/31/2021 16:17:22 Do You Have An Advance Directive? No Information not available 02/25/2019 What Is Your Level Of Alcohol Consumption? Occasional Weekends Information not available 11/13/2023 Is Blood Transfusion Acceptable In An Emergency? Yes Information not available 09/07/2015 What Is Your Level Of Caffeine Consumption? Occasional Coffee Information not available 10/31/2021 How Much Tobacco Do You Chew? None Information not available 09/07/2015 Are You Currently Employed? Yes Information not available 09/07/2015 What Type Of Diet Are You Following? REGULAR Information not available 09/07/2015 Which Illicit Or Recreational Drugs Have You Used? None Information not available 02/25/2019 Do You Or Have You Ever Used E-cigarettes Or Vape? Never Used Electronic Cigarettes Information not available 02/25/2019 What Is Your Occupation? [employer] Information not available 02/25/2019 Live Alone Or With Others? With Others Son Information not available 09/07/2015 Do You Take Precautions To Prevent Distracted Driving? Yes Information not available 09/07/2015 How Often Do You Need To Have Someone Help You When You Read Instructions, Pamphlets, Or Other Written Material From Your Doctor Or Pharmacy? Never Information not available 09/07/2015 Have You Served In The ? No Information not available 12/22/2017 Have You Or Anyone In Your Household Had Any Of The Following Symptoms In The Last 14 Days: Sore Throat, Cough, Chills, Body Aches For Unknown Reasons, Shortness Of Breath For Unknown Reasons, Loss Of Smell, Loss Of Taste, Fever At Or Greater Than 100 Degrees Fahrenheit? No Information not available 01/01/2021 Are You Or Anyone In Your Household A Health Care Provider Or Emergency Responder? No Information not available 01/01/2021 To The Best Of Your Knowledge Have You Been In Close Proximity To Any Individual Who Tested Positive For COVID-19? No Information not available 01/01/2021 Have You Recently Traveled To A COVID-19 High Risk Area Or Gathering In The Last 10 Days? No Information not available 01/01/2021 What Was The Date Of Your Most Recent Tobacco Screening? 11/13/2023 Information not available 11/13/2023 How Many Children Do You Have? 1 Edmund Information not available 09/07/2015 Seat Belts Used Routinely Yes Information not available 09/07/2015 Smoke Alarm In Home Yes Information not available 12/22/2017 Are You Passively Exposed To Smoke? Yes Information not available 09/07/2015 How Much Tobacco Do You Smoke? No Information not available 09/07/2015 Do You Use Any Illicit Or Recreational Drugs? No Information not available 10/31/2021 Do You Use Sunscreen Routinely? Yes Information not available 09/07/2015 Do You Or Have You Ever Used Any Other Forms Of Tobacco Or Nicotine? No Information not available 10/31/2021 Sex: Unknown Functional Status Question Answer Note LastModified by Organization D etails LastModified Time Are you able to walk? YESWOREST Information not available 10/31/2021 Are you able to care for yourself? Yes Information not available 09/07/2015 What is your exercise level? None Information not available 11/13/2023 Mental Status None recorded. Family History Relationship Description Onset Age of this Age Resolved Age Notes LastModified by Organization Details LastModified Time Mother Alzheimer's disease 63 [email or web address] Not available 07/2016 15:28:16 Father Gout 79 [email or web address] Not availab le 12/14/2015 15:28:16 Father Heart disease Pacema ker mdalessandro Not available 12/14/2015 15:28:16 Notes:no fh of P Ca or CRC Medical History Condition Response Varicose Veins Y Obesity Y Hypertension Y High Cholesterol Y Immunizations Vaccine Type Date Status Note Provider Nam e and Address Organization Details Recorded Time COVID-19, mRNA, LNP-S, PF, 30 mcg/0.3 mL dose 1 completed KATIA Rosales MA [facility] 10/31/2021 16:14:20 COVID-19, mRNA, LNP-S, PF, 30 mcg/0.3 mL dose 1 completed KTAIA Rosales, [facility] 10/31/2021 16:14:20 Tdap 1 completed KATIA Rosales, [facility] 10/31/2021 16:14:20 Influenza, split virus, quadrivalent, PF 5 completed Not Available [facility] 10/23/2019 02:22:02 zoster recombinant 5 completed Anisha stewart, [facility] 10/26/2024 15:33:59 Influenza, split virus, quadrivalent, PF 6 completed Not Available [facility] 10/23/2019 02:22:04 Influenza, split virus, quadrivalent, PF 2 completed KATIA Rosales, [facility] 11/01/2021 09:42:33 Tdap 0 completed Not Available [facility] 04/19/2014 14:01:12 Past Encounters Encounter ID Performer Location Encounter Start Date Encounter Closed Date Diagnosis/Indication Diagnosis SNOMED-CT Code Diagnosis ICD10 Code Diagnosis Note [id number] autoEComm erce [address] [facility] [place] [address] 03/18/2007 00:00:00 [id number] autoEComm erce [address] [facility] [facility] [place] [address] 05/25/2010 00:00:00 [id number] autoEComm erce [address] [facility] [address] [place] [address] 06/18/2010 00:00:00 [id number] autoEComm erce [address] [facility] [place] [address] 12/27/2010 00:00:00 [id number] Álvaro crocker Main Office [address] [facility] [address] [place] [address] 09/07/2015 14:57:34 09/07/2015 16:10:40 Adult health examination 834026937 Z00.00 Needs infl uenza immunization 823923554 Z23 Body mass index 30+ - obesity 980861446 E66.9 Varicose v eins of the leg with rupture 458715553 I83.899 Elevated blood-pressure reading without diagnosis of hypertension 482033702 R03.0 [id number] Álvaro crocker Main Office [address] [facility] [address] [place] [address] 12/14/2015 14:27:59 12/14/2015 15:32:55 Essential hypertension 94805588 I10 Hyperlipidemia 81585056 E78.5 pt will work on lifestyle changes for now [id number] Álvaro crocker Main Office [address] [address] [place] [address] 06/24/2016 15:11:46 06/24/2016 16:25:05 Essential hypertension 92312629 I10 Hyperlipidemia 97822429 E78.5 ASCVD 6.1 %/ pt agrees to statin Influenza vaccine needed 2100338024 106 Z23 Body mass index 30+ - obesity 229894873 E66.9 Screening for malignant neoplasm of colon 375151603 Z12.11 [id number] Mayda Kaylen driver Main Office [address] [address] [place] [address] 01/17/2017 09:17:26 01/17/2017 10:02:40 Ulcer of foot 42992985 L97.909 Sx x 3 weeks, suspect this is due to poor circulatio n but will check bloodwork to r/o DM. ibuprofen as needed with food, bactrim ad prescribed , Tylenol #3 as needed- no driving or alcohol with med. XR today, use antibiotic ointment, non-stick dressing and wrap the wound when wearing socks and shoes. (wound was dressed in the office today) If wearing sandals and around the house may leave open to air. [id number] Eulalia Tim Main Office [address] [address] [place] [address] 02/08/2017 11:44:01 02/08/2017 12:26:13 Hyperlipidemia 38197449 E78.5 ASCVD 6.1 %/ pt agrees to statin Essential hypertension 24218159 I10 Skin ulcer of calf 45656 4006 L97.209 Body mass index 30+ - obesity 710388550 E66.9 Z68.35 [id number] Raj Tarango MD Main Office [address] [address] [place] [address] 12/19/2017 14:57:08 12/19/2017 16:22:18 Ulcer of foot 99753307 L97.[address] Huitron on meds. Does not appear to be infected. Xray was normal. Continue to with dressing changes and pain meds. [id number] Álvaro crocker Main Office [address] [address] [place] [address] 12/22/2017 13:16:57 12/22/2017 14:16:00 Adult health examination 357676837 Z00.00 Venous sta sis ulcer of leg 488925218 I83.009 painful/ phone call February [address] Garcia-wound care who advises pt needs oxycodone Impaired f asting glycemia 416812250 R73.01 Hyperlipidemia 47656253 E78.5 ASCVD 6.1 %/ pt agrees to statin Anemia 937488135 D64.9 Screening for malignant neoplasm of colon 003604067 Z12.11 Ulcer of foot 08722449 L 97.909 [id number] Yulissa Zayas Main Office [address] [address] [place] [address] 12/03/2018 14:27:19 12/03/2018 16:05:08 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 If has trait would have children evaluated for genetic purposes. Await labs Anemia due to unknown mechanism 36417167 D64.9 Mild decreased H/H in the past with low iron sat, recheck. Venous ins ufficiency of leg 657744767 I87.2 elevate legs, low salt diet, stocking if he has swelling, enc to lose weight [id number] Juanjose Ingram PA-C Main Office [address] [address] [place] [address] 12/31/2018 14:59:02 12/31/2018 16:06:19 Sickle cell trait 41155887 D57.3 Screening for malignant neoplasm of colon 703393239 Z12.11 Z12.12 Primary er ectile dysfunction 444765531 N52.9 Essential hypertension 46735531 I10 stable, cont med as dir, check bmp Reduced libido 8886793 R 68.82 [id number] Juanjose Ingram PA-C Main Office [address] [facility] [address] [place] [address] 02/25/2019 09:14:37 02/25/2019 10:12:35 Hematochezia 859949408 K62.5 likely d/t hemorrhoid , had negative cologuard, but has never had colonoscop y - will check cbc and arrange gi eval Sickle cell trait 710011 00 D57.3 see above Cough 96307770 R05 likely d/t pnd, doubt pna as has clear lungs - see below Primary er ectile dysfunction 831292102 N52.9 Acute sinusitis 11452658 J01.90 rec probiotics while on abx [id number] Juanjose Ingram PA-C Main Office [address] [facility] [address] [place] [address] 06/14/2019 10:39:13 06/14/2019 11:47:58 Pain in left knee 5092171825 27566 M25.562 ? etiology ? pfs vs other - will get ortho eval - likely they will check xrays Obstructiv e sleep apnea syndrome 17830121 G47.33 cont cpap as dir - may need adjustment /titration since has lost > 40 lbs intentiona lly - congratula woody pt on wt lost [id number] Juanjose Ingram PA-C Main Office [address] [facility] [address] [place] [address] 01/01/2021 11:28:39 01/01/2021 12:40:45 Essential hypertension 44304008 I10 stable, cont med as dir, check bmp in pe labs (separate order) Hyperlipidemia 29807492 E78.5 cont statin, recheck lipids Primary er ectile dysfunction 519257104 N52.9 Body mass index 30+ - obesity 047338658 E66.9 Z68.36 rec increase aerobic ex - hopefully will lower bp so can reduce med as well [id number] Juanjose Ingram PA-C Main Office [address] [facility] [address] [place] [address] 10/31/2021 15:58:28 10/31/2021 16:56:56 Adult health examination 459047930 Z00.00 Needs infl uenza immunization 030381083 Z23 Obstructiv e sleep apnea syndrome 16671608 G47.33 off cpap since has lost > 40 lbs intentiona chuyitay - congratula woody pt on wt lost Essential hypertension 15962715 I10 stable bp & cr, cont med as dir, check bmp in a few months Hyperlipidemia 28694990 E78.5 stable - cont statin Body mass index 30+ - obesity 586799968 E66.9 Z68.34 rec increase aerobic ex - hopefully will lower bp so can reduce med as well Sickle cell trait 796753 00 D57.3 Varicella vaccination 68 308177 Z23 Impaired f asting glycemia 684754652 R73.01 but no evidence of predm - stopped soda Leukocytosis 935839535 D 72.[address] but stable x few yrs - recheck in 6 months Hepatitis C screening 41 5161952 Z11.59 [id number] Juanjose Ingram PA-C [facility] [address] [facility] [address] [place] [address] 08/05/2023 15:10:32 08/06/2023 09:06:12 Hyperlipidemia 81587661 E78.5 refill statin and check lipids Essential hypertension 38356109 I10 refill lis at pt request, pt states his bp has been normal Impaired f asting glycemia 265173588 R73.01 but no evidence of predm - stopped soda10.23 - recheck a1c Nocturia 370123776 R35.1 Hepatitis C screening 41 2918699 Z11.59 Leukocytosis 518464616 D 72.[address] but stable x few yrs - recheck in 6 months [id number] Juanjose Ingram PA-C Main Office [address] [facility] [address] [place] [address] 11/13/2023 15:53:50 11/14/2023 08:53:57 Adult health examination 573768179 Z00.00 Prediabetes 998112300 R7 3.03 Asher - unfortunat milvia you have evidence of pre-diabet es - rec. less sugar intake (candy, ice cream, soda/juice , etc), follow a low carb diet and get plenty of aerobic exercise to help you to lose weight. Pat Body mass index 30+ - obesity 439557530 E66.9 Z68.39 cont plenty of walking/co nsider HIIT, consider myplate.go v, rec increase sleep to 7-8 hours/nigh t Hyperlipidemia 13524026 E78.5 mildly elevated ldl/trigs - rec increase statin to 20mg qdrecheck fasting in several months Essential hypertension 88611437 I10 bp & cr stable, cont med as dir Leukocytosis 487174007 D 72.[address] but stable x few yrs - recheck in 6 months 2.24 - wbc count trending down, rest of cbc stable Obstructiv e sleep apnea syndrome 30196121 G47.33 off cpap since has lost > 40 lbs intentiona lly - congratula woody pt on wt lost 2.24 - has regained wt, see above - if sleep does not improve c wt loss, then consider sleep med re-eval Screening for malignant neoplasm of colon 505501282 Z12.11 Z12.12 Health Concerns Section Related Observation LastModified by Organization Detai ls LastModified Time None Recorded Concern Status LastModified by Organization Details LastModified Time None Recorded Advance Directives Directive N: Payers Encounter Date Sequence Insurance Name Policy Number Policy Esparza Covered Member ID Esparza Member ID Guarantor Name 06/14/2019 1 [facility] [id number] [facility] [id number] [facility] 01/01/2021 1 [facility] [id number] [facility] [id number] [facility] 10/31/2021 1 [facility] [id number] [facility] [id number] [facility] 08/05/2023 1 [facility] [id number] [facility] [id number] [facility] 11/13/2023 1 [facility] [id number] [facility] [id number] [facility] Notes Date Note Type Note Provider Name and Address Organization Details Recorded Time 06/14/2019 text/html c/o L knee pain int x several months, did step up ex program - never seen by coco hugo c full flexion, no clicking / locking, no edema Juanjose Ingram PA-C [address] [address], [place], [address], [facility] 06/14/2019 11:42:06 01/01/2021 text/html Hypertension F/UReported bypatient.Associat ed Symptoms:no dizziness; no lightheadedness; no chest pain; no shortness of breath; no palpitations; no edema; no calf pain with exertion Lifestyle:limiting /avoiding salt;not exercising regularly Medications:taking medications as directed; no side effects from medication Juanjose Ingram PA-C [address] [address], [place], [address], [facility] 01/01/2021 13:13:22 10/31/2021 text/html here for annual pe. Juanjose Ingram PA-C [address] [address], [place], [address], [facility] 11/01/2021 12:51:25 08/05/2023 text/html Hypertension F/UReported bypatient.Associat ed Symptoms:no dizziness; no lightheadedness; no chest pain; no shortness of breath; no palpitations; no edema; no calf pain with exertion Lifestyle:regular exercise; limiting/avoiding salt Medications:taking medications as directed; no side effects from medication TH for f/u visitlast ov was PE back on 10.31.21pt states he had a lot of leftover meds, but just ran out last week - would like refills Juanjose Ingram PA-C [address] [address], [place], [address], [facility] 08/05/2023 16:23:03 11/13/2023 text/html here for annual pe. Juanjose Ingram PA-C [address] [address], [place], [address], [facility] 11/13/2023 17:21:27
--- OUTSIDE RECORDS SUMMARY | 2024-10-26 17:23 | XMS_ITS | Clinical Summary ---
Author Organization [facility] Address [address] [place] [address] Care Team Providers Care Dog Or Horse Racing Official Name Role Phone Unavailable Primary Care Provider Unavailabl e Social History Tobacco Use Types Packs/Day Years Used Date Smoking Tobacco: Never Assessed Sex and Gender Information Value Date Recorded Sex Assigned at Not on file Gender Identity Not on file Sexual Orientation Not on file Plan of Treatment Health Maintenance Due Date Last Done Comments CT Colonography 1966 Cologuard 1966 Colonoscopy 1966 Colorectal Cancer Screening 1966 FOBT/FIT 1966 Hepatitis C Screening 1966 Sigmoidoscopy 1966 PHQ-9 Depression Screen 1978 Annual Preventive Exam 1984 JEROME-7 Anxiety Screen 1984 DTaP,Tdap,and Td Vaccines (1 - Tdap) 1985 Zoster Vaccines (1 of 2) 2016 COVID-19 Vaccine ( - 2023- season) 2024 Influenza Vaccine (#1) 2024 RSV Vaccine (SCDM) (1 - 1-dose 75+ series) 2041
== END 2024-10-26 16:36 | disposition home or self-care (01) ==
PROVIDERS: Visit Provider Physician Assistant
DX: L25.9 Unspecified contact dermatitis, unspecified cause (principal)